=== PATIENT | female | born 1975 | race African-American/Black ===

== ENCOUNTER 2016-06-13 11:04 | Emergency (ER) | payer BC ==
--- NOTE | ~2016-06-13 | CT2 ---
[facility] A Service of [facility] RADIOLOGY TEXT RESULTS PATIENT: HILDA LOPEZ LOCATION: [facility] : 73 UNIT #: [id number] AGE: [address]: Allyn Perez SEX: F ORDER DR: [id number] [place], [place] [address] [id number] E MR#: [id number] Acc #: [id number] NAME: HILDA LOPEZ : 1975 SEX: F STUDY DATE/TIME: 06/13/2016 12:11 UNIT: [facility] ROOM: STUDY DESCRIPTION: CT Abd and Pelv W Cont Attending Physician: Allyn Perez P.A.-C. Ordering Physician: lAlyn Perez P.A.-C. Primary Care Physician: Generic Doctor Not In System MEDICAL IMAGING REPORT This report is preliminary unless electronic signature is present EXAM CT abdomen and pelvis with contrast. HISTORY 40-year-old female with lower abdominal pain since 06/11/2016 mid right-sided pain. TECHNIQUE Axial images performed through the abdomen and pelvis following IV contrast. Multiplanar reconstructed images reviewed at a workstation. This CT exam was performed with one or more of the following radiation dose reduction techniques: automatic exposure control, adjustment of mA and/or kV according to patient size, and iterative reconstruction. FINDINGS ABDOMEN: Lung bases unremarkable. Liver, spleen, and gallbladder appear normal. Pancreas, kidneys, and adrenal glands are unremarkable. No free air or free fluid. The visualized GI tract appears normal. There is a linear calcified structure in the right lower quadrant extending into the right pelvis which may represent a contrast-filled appendix. This does not appear to represent an appendicolith. No definite inflammatory changes are seen within the right lower quadrant. Retroperitoneum unremarkable. PELVIS: Bladder is decompressed. Uterus surgically absent. Osseous structures and soft tissues appear normal. IMPRESSION 1. No definite acute intraabdominal or intrapelvic pathology identified. A linear calcified structure is seen extending into the right pelvis from the right lower quadrant, probably represents a contrast-filled appendix, possibly from previous barium study or CT scan. This does STS. [facility] A Service of [facility] & [facility] RADIOLOGY TEXT RESULTS PATIENT: HILDA LOPEZ LOCATION: [facility] : 73 UNIT #: [id number] AGE: [address]: Allyn Perez SEX: F ORDER DR: not appear to represent a true appendicolith and no convincing evidence of periappendiceal inflammatory change or inflammatory changes within the right lower quadrant are seen. 2. Patient is post hysterectomy. Dictated by... May Cruz M.D. THIS IS AN ELECTRONICALLY VERIFIED REPORT May Cruz M.D. at 06/15/2016 10:06 PM CÉSAR/imer TD: 06/13/2016 14:00 JOB #: [id number] MEDICAL IMAGING REPORT Page 1 of 1 COPY
[2016-06-13 11:07] LABS: BASOPHIL# 0.1 X10e3 (0-0.3); BASOPHIL% 0.6 % (0-2.5); EOSINOPHIL% 0.2 % (0.0-7.0); HEMATOCRIT 42.3 % (35.0-45.0); HEMOGLOBIN 14.1 gm/dL (12.0-16.0); LYMPHOCYTE# 0.8 X10e3 (1.0-3.5); MEAN CORPUSCULAR HEMOGLOBIN 27.6 PG (28-34); MEAN CORPUSCULAR HGB CONC 33.2 g/dL (30-36); MEAN PLATELET VOLUME 8.7 FL (6.5-11.5); MONOCYTE# 0.4 X10e3 (0-1.0); MONOCYTE% 3.5 % (3.0-12.0); NEUTROPHIL# 9.6 X10e3 (1.5-7.1); NEUTROPHIL% 88.7 % (40-75); PLATELET COUNT 208 X10e3 (140-420); RED CELL DISTRIBUTION WIDTH 13.9 % (11.0-15.5); WHITE BLOOD COUNT 10.8 X10e3 (4.0-10.5)
[2016-06-13 11:09] LABS: DIFF IND NO
[2016-06-13 11:34] LABS: CREATININE SERUM 0.8 mg/dL (0.6-1.4); GLOM FILT RATE Estimated 106.2 mL/min (>60); POTASSIUM 3.4 mmol/L (3.5-5.1)
[2016-06-13 12:02] LABS: URINE SOURCE CLEAN CATCH
[2016-06-13 12:07] LABS: URINE APPEARANCE CLOUDY; URINE BILIRUBIN NEG (NEG); URINE BLOOD 3+ (NEG); URINE COLOR YELLOW; URINE GLUCOSE NEG (NEG); URINE KETONE 2+ (NEG); URINE LEUKOCYTE ESTERASE NEG (NEG); URINE NITRATE NEG (NEG); URINE PH 5.5 (5-8); URINE PROTEIN 3+ (NEG); URINE SPECIFIC GRAVITY 1.029 (1.003-1.035)
[2016-06-13 12:10] LABS: URBCS1 AUWI 25-50 /[HPF] (0-2); URINE BACTERIA AUWI NEG (NEGATIVE); URINE SQUAMOUS EPITHELIAL CELL OCC /[HPF]
[2016-06-13 12:12] LABS: CULTURE INDICATED? NO
[2016-06-15 03:15] LABS: CHLAMYDIA TRACH Not Detected (Not Detected); N GONOR Not Detected (Not Detected)
== END 2016-06-13 13:39 | disposition home or self-care (01) ==
LOC: CFTX 11:04
PROVIDERS: Physician Assistant
DX: R10.2 Pelvic and perineal pain (principal); R31.29 Other microscopic hematuria; Z90.710 Acquired absence of both cervix and uterus; Z98.890 Other specified postprocedural states; F17.210 Nicotine dependence, cigarettes, uncomplicated
CPT/HCPCS: 36415; 74177; 80048; 81003; 85025; 87491; 87591; 87808; 87905; 96361; 96374; 96375; 99284; J1885; J2405; Q9967